=== PATIENT | male | born 1965 | race Two or more races ===

== ENCOUNTER → 2016-11-15 | Outpatient (CLI) | payer OTHER ==
[~2016-11-15] MED LIST: ASPI-621 PO; ATOR80TA75 PO; LISI5TAB7 PO; METO50TA4 PO; TICA90TA PO
== END | disposition home or self-care (01) ==
LOC: CFH 07:13
PROVIDERS: ATTEND Internal Medicine Cardiovascular Disease
DX: I50.30 Unspecified diastolic (congestive) heart failure (principal); I21.4 Non-ST elevation (NSTEMI) myocardial infarction; I08.0 Rheumatic disorders of both mitral and aortic valves
CPT/HCPCS: 93306

== ENCOUNTER → 2018-05-03 | Outpatient (CLI) | payer OTHER ==
[~2018-05-03] MED LIST changes: +ATOR-2 PO; -ATOR80TA75 PO
== END | disposition home or self-care (01) ==
LOC: CFH 14:45
PROVIDERS: ATTEND Internal Medicine Cardiovascular Disease
DX: I08.0 Rheumatic disorders of both mitral and aortic valves (principal); I25.10 Atherosclerotic heart disease of native coronary artery without angina pectoris; I10 Essential (primary) hypertension; E78.5 Hyperlipidemia, unspecified; I25.2 Old myocardial infarction; Z98.61 Coronary angioplasty status
CPT/HCPCS: 93306

== ENCOUNTER → 2019-07-31 | Outpatient (CLI) | payer OTHER ==
[~2019-07-31] MED LIST changes: -ASPI-621 PO; +ASPI81TA45 PO
[2019-07-31 13:35] LABS: ALANINE AMINOTRANSFERASE 84 U/L (12-78); ALBUMIN 3.7 g/dL (3.4-5.0); ANION GAP 10 mmol/L (5-15); CALCIUM 8.6 mg/dL (8.5-10.1); CHLORIDE 108 mmol/L (98-107); CREATININE 1.11 mg/dL (0.7-1.3)
[2019-07-31 13:43] LABS: ALKALINE PHOSPHATASE 80 U/L (45-117); CHOL/HDL RATIO 4.6; CHOLESTEROL, TOTAL 162 mg/dL (140-239); HDL CHOL % 22 % (26-37); HDL CHOLESTEROL (DIRECT) 35 mg/dL (40-60); LDL CHOLESTEROL,CALCULATED 75 mg/dL (54-169); LDL/HDL RATIO 2.1 (0.5-3.0); TOTAL PROTEIN 7.3 g/dL (6.4-8.2); TRIGLYCERIDES 259 mg/dL (50-200); VLDL CHOLESTEROL 52 mg/dL (0-25)
== END | disposition home or self-care (01) ==
LOC: CFH 11:35
PROVIDERS: ATTEND Internal Medicine Cardiovascular Disease
DX: I35.0 Nonrheumatic aortic (valve) stenosis (principal); E78.2 Mixed hyperlipidemia; I21.4 Non-ST elevation (NSTEMI) myocardial infarction
CPT/HCPCS: 36415; 80053; 80061

== ENCOUNTER 2021-01-06 09:18 | Inpatient (IN) | payer OTHER ==
[~2021-01-06] VITALS: Ht 172.7 cm; Wt 106.7 kg
--- NOTE | 2021-01-06 09:50 | NUR ---
PT BIB SELF VIA POV. PER PT "I JUST GOT BACK FROM VACATION AND I'M HAVING MILD CHEST PAINS AND FATIGUE." PT SENT HERE FROM PCP FOR CHANGES ON EKG. HX [place] WITH STENT 2016. PT STATES CP IS 1/10 DISCOMFORT WHEN NOT EXERTING HIMSELF BUT THAT THE PAIN GOES UP TO A 7/10 WITH ANY ACTIVITY. PT STATES NO OTHER HX BESIDES MN WITH STENT PLACEMENT. PT RESTING IN [facility], MONITORING IN PLACE, EKG DONE IN TRIAGE, NADN AT THIS TIME, WCTM.
[2021-01-06] MEDS ORDERED: ASPIRIN 81 MG TABLET CHEW ONE (10:22)
[2021-01-06 10:23] LABS: BASOPHILS % (AUTO) 1 % (0-1); EOSINOPHILS % (AUTO) 4 % (1-7); LYMPHOCYTES % (AUTO) 21 % (22-44); MEAN CORPUSCULAR HEMOGLOBIN 31.7 pg (27.5-34.5); MEAN CORPUSCULAR HGB CONC 34.6 g/dL (33.2-36.2); MEAN PLATELET VOLUME 8.5 fL (7.4-10.4); MONOCYTES % (AUTO) 11 % (2-9); NEUTROPHILS % (AUTO) 63 % (42-75); PLATELET COUNT 184 x10^3/uL (130-400); RED BLOOD COUNT 4.92 x10^6/uL (4.38-5.82)
[2021-01-06 10:26] LABS: ALANINE AMINOTRANSFERASE 31 U/L (12-78); ALBUMIN 3.5 g/dL (3.4-5.0); ANION GAP 7 mmol/L (5-15); CALCIUM 8.4 mg/dL (8.5-10.1); CHLORIDE 108 mmol/L (98-107)
[2021-01-06] MEDS ORDERED: ASPIRIN 81 MG TABLET CHEW PO ONE (10:30)
[2021-01-06 10:31] LABS: ALKALINE PHOSPHATASE 71 U/L (45-117); BILIRUBIN,TOTAL 0.7 mg/dL (0.2-1.0); CREATININE 0.95 mg/dL (0.7-1.3); TOTAL PROTEIN 7.1 g/dL (6.4-8.2)
[2021-01-06 10:45] LABS: TROPONIN I 0.222 ng/mL (0.000-0.045)
[2021-01-06] MEDS ORDERED: HEPARIN 25,000 UNITS/250ML PMX 250 ML IV PRN (11:00)
[2021-01-06 11:08] LABS: PARTIAL THROMBOPLASTIN TIME 28 Seconds (25-31); PROTHROMBIN TIME 10.7 Seconds (9.6-11.5)
[2021-01-06] MEDS ORDERED: HEPARIN 5,000 UNITS/ML, 1ML ONE (11:24)
[2021-01-06] MEDS ORDERED: HEPARIN 25,000 UNITS/250ML PMX 250 ML ONE (11:24)
[2021-01-06] MEDS ORDERED: ONDANSETRON ODT 4 MG PO PRN (12:00)
[2021-01-06] MEDS ORDERED: HEPARIN 5,000 UNITS/ML, 1ML IV PRN (12:00)
[2021-01-06] MEDS ORDERED: ONDANSETRON 2MG/ML, 2ML IVPush PRN (12:00)
[2021-01-06] MEDS ORDERED: HEPARIN 5,000 UNITS/ML, 1ML IV ONE (12:00)
[2021-01-06] MEDS ORDERED: ACETAMINOPHEN 325 MG TABLET PO PRN (12:00)
[2021-01-06] MEDS ORDERED: NITROGLYCERIN 0.4 MG BOTTLE (25 TABS) SL PRN (12:00)
[2021-01-06 12:51] LABS: TROPONIN I 0.215 ng/mL (0.000-0.045)
[2021-01-06 13:07] VITALS: BP 143/93
[2021-01-06] MEDS ORDERED: MIDAZOLAM 1 MG/ML, 5ML ONE (14:36)
[2021-01-06] MEDS ORDERED: TICAGRELOR 90 MG TABLET ONE (14:37)
[2021-01-06] MEDS ORDERED: VERAPAMIL 2.5 MG/ML, 2ML ONE (14:37)
[2021-01-06] MEDS ORDERED: BIVALIRUDIN 250 MG ONE (14:37)
[2021-01-06] MEDS ORDERED: LIDOCAINE-MPF 1%, 5ML ONE (14:37)
[2021-01-06] MEDS ORDERED: FENTANYL PF 100 MCG/2ML ONE (14:37)
[2021-01-06] MEDS ORDERED: HEPARIN 1,000 UNITS/ML, 10ML ONE (14:37)
[2021-01-06] MEDS: SODIUM CHLORIDE 0.9% 1,000 ML IV SCH ×3 (14:43→23:36)
[2021-01-06 18:25] LABS: TROPONIN I 0.201 ng/mL (0.000-0.045)
[2021-01-06 19:15] VITALS: BP 132/81
[2021-01-06] MEDS ORDERED: METOPROLOL SUCCINATE 50 MG TAB.ER.24H PO SCH (21:00)
[2021-01-06] MEDS ORDERED: ATORVASTATIN 80 MG TABLET PO SCH (21:00)
[2021-01-07 00:49] VITALS: BP 136/84
[2021-01-07] MEDS: SODIUM CHLORIDE 0.9% 1,000 ML IV SCH ×2 (04:40→08:00)
[2021-01-07] MEDS ORDERED: ASPIRIN 325 MG TABLET EC PO SCH (06:00)
[2021-01-07 06:08] LABS: BASOPHILS % (AUTO) 1 % (0-1); EOSINOPHILS % (AUTO) 4 % (1-7); LYMPHOCYTES % (AUTO) 16 % (22-44); MEAN CORPUSCULAR HEMOGLOBIN 31.8 pg (27.5-34.5); MEAN CORPUSCULAR HGB CONC 34.7 g/dL (33.2-36.2); MEAN PLATELET VOLUME 8.2 fL (7.4-10.4); MONOCYTES % (AUTO) 8 % (2-9); NEUTROPHILS % (AUTO) 72 % (42-75); PLATELET COUNT 182 x10^3/uL (130-400); RED BLOOD COUNT 4.94 x10^6/uL (4.38-5.82); RED CELL DISTRIBUTION WIDTH 13.7 % (9.4-14.8)
[2021-01-07 06:21] LABS: ANION GAP 4 mmol/L (5-15); CALCIUM 8.4 mg/dL (8.5-10.1); CHLORIDE 104 mmol/L (98-107)
[2021-01-07 06:28] LABS: CHOL/HDL RATIO 5.3; CHOLESTEROL, TOTAL 195 mg/dL (140-239); CREATININE 0.83 mg/dL (0.7-1.3); HDL CHOL % 19 % (26-37); HDL CHOLESTEROL (DIRECT) 37 mg/dL (40-60); LDL CHOLESTEROL,CALCULATED 119 mg/dL (54-169); LDL/HDL RATIO 3.2 (0.5-3.0); TRIGLYCERIDES 197 mg/dL (50-200); VLDL CHOLESTEROL 39 mg/dL (0-25)
[2021-01-07 07:22] VITALS: BP 140/88
[2021-01-07] MEDS ORDERED: LISINOPRIL 5 MG TABLET PO SCH (09:00)
[2021-01-07] MEDS ORDERED: ASPIRIN 81 MG TABLET EC PO SCH (09:00)
[2021-01-07 13:36] VITALS: BP 132/87
[2021-01-07] MEDS ORDERED: NITR0.4T28 SL (14:14)
[2021-01-07] MEDS ORDERED: OMNIPAQUE 350 MG/ML, 100ML BOTTLE ONE (15:09)
== END 2021-01-07 17:41 | disposition home or self-care (01) | DRG 281 ==
LOC: ED 10:55 → 5SO 11:53
PROVIDERS: ADMIT Internal Medicine; ATTEND Internal Medicine
PROC: 4A023N7 Measurement of Cardiac Sampling and Pressure, Left Heart, Percutaneous Approach (ICD-10-PCS; principal; 2021-01-06)
PROC: B2111ZZ Fluoroscopy of Multiple Coronary Arteries using Low Osmolar Contrast (ICD-10-PCS; 2021-01-06)
DX: I21.4 Non-ST elevation (NSTEMI) myocardial infarction (principal); E87.1 Hypo-osmolality and hyponatremia; E66.9 Obesity, unspecified; E78.5 Hyperlipidemia, unspecified; I10 Essential (primary) hypertension; I25.110 Atherosclerotic heart disease of native coronary artery with unstable angina pectoris; I35.0 Nonrheumatic aortic (valve) stenosis; Z00.6 Encounter for examination for normal comparison and control in clinical research program; Z82.49 Family history of ischemic heart disease and other diseases of the circulatory system; Z68.35 Body mass index [BMI] 35.0-35.9, adult; Z87.442 Personal history of urinary calculi; Z87.891 Personal history of nicotine dependence; Z95.5 Presence of coronary angioplasty implant and graft; Z72.89 Other problems related to lifestyle
CPT/HCPCS: 36415; 71045; 71275; 74175; 80048; 80053; 80061; 84484; 85025; 85520; 85610; 85730; 93005; 93306; 93356; 93454; 99156; C1769; C1894; G0378; J0583; J1644; J2250; J3010; Q9967; J7030

== ENCOUNTER 2021-01-28 04:17 | Inpatient (IN) | payer OTHER ==
[2021-01-27 14:07] LABS: MICROSCOPIC NOT IND
[2021-01-27 14:08] LABS: BASOPHILS % (AUTO) 1 % (0-1); EOSINOPHILS % (AUTO) 3 % (1-7); LYMPHOCYTES % (AUTO) 29 % (22-44); MEAN CORPUSCULAR HEMOGLOBIN 31.1 pg (27.5-34.5); MEAN CORPUSCULAR HGB CONC 33.9 g/dL (33.2-36.2); MEAN PLATELET VOLUME 8.1 fL (7.4-10.4); MONOCYTES % (AUTO) 12 % (2-9); NEUTROPHILS % (AUTO) 55 % (42-75); PLATELET COUNT 228 x10^3/uL (130-400); RED BLOOD COUNT 5.09 x10^6/uL (4.38-5.82); RED CELL DISTRIBUTION WIDTH 13.9 % (9.4-14.8)
[2021-01-27 14:18] LABS: ALANINE AMINOTRANSFERASE 34 U/L (12-78); ALBUMIN 3.8 g/dL (3.4-5.0); ANION GAP 8 mmol/L (5-15); CALCIUM 8.9 mg/dL (8.5-10.1); CHLORIDE 106 mmol/L (98-107); CREATININE 0.93 mg/dL (0.7-1.3)
[2021-01-27 14:20] LABS: ALKALINE PHOSPHATASE 80 U/L (45-117); BILIRUBIN,TOTAL 0.9 mg/dL (0.2-1.0); TOTAL PROTEIN 7.7 g/dL (6.4-8.2)
[2021-01-27 14:21] LABS: PROTHROMBIN TIME 10.7 Seconds (9.6-11.5)
[2021-01-28] VITALS (12 sets, daily range): BP systolic 102–153; BP diastolic 56–92
[~2021-01-28] VITALS: Ht 172.7 cm; Wt 113.0 kg
[~2021-01-28 04:17] MED LIST changes: +METO-93 PO; +NITR0.4T28 SL
[2021-01-28] MEDS ORDERED: DO NOT GIVE MC SCH (04:30)
[2021-01-28] MEDS ORDERED: CHLORHEXIDINE 15 ML UDC MM SCH (04:30)
[2021-01-28] MEDS ORDERED: INSULIN LISPRO 100 UNITS/ML, PEN SQ-INSULIN SCH (04:30)
[2021-01-28] MEDS ORDERED: METOPROLOL TARTRATE 25 MG TAB PO ONE (05:00)
[2021-01-28] MEDS ORDERED: FENTANYL PF 250 MCG/5ML ONE ×5 (07:10→11:24)
[2021-01-28] MEDS ORDERED: MIDAZOLAM 10MG/2 ML ONE (07:10)
[2021-01-28] MEDS ORDERED: PROPOFOL 10 MG/ML, 20ML ONE (07:11)
[2021-01-28] MEDS ORDERED: AMINOCAPROIC ACID 250 MG/ML, 20ML ONE ×3 (07:11→13:20)
[2021-01-28] MEDS ORDERED: EPINEPHRINE 1 MG/ML, 1ML ONE (07:11)
[2021-01-28] MEDS ORDERED: CALCIUM CHLORIDE 10%, 10ML SYR ONE ×2 (07:11→13:54)
[2021-01-28] MEDS ORDERED: ROCURONIUM 10MG/ML,5ML ONE ×3 (07:11→10:38)
[2021-01-28] MEDS ORDERED: ALBUMIN HUMAN 5% 500 ML IV PRN ×2 (07:30→14:30)
[2021-01-28] MEDS ORDERED: PHENYLEPHRINE 50 MG in SODIUM CHLORIDE 0.9% 245 ML IV PRN ×2 (07:30→14:30)
[2021-01-28] MEDS ORDERED: REGULAR INSULIN 100 UNITS in SODIUM CHLORIDE 0.9% 99 ML IV PRN ×2 (07:30→14:30)
[2021-01-28] MEDS ORDERED: EPINEPHRINE 5 MG in SODIUM CHLORIDE 0.9% 245 ML IV PRN ×2 (07:30→14:30)
[2021-01-28] MEDS ORDERED: DEXMEDETOMIDINE 200 MCG in SODIUM CHLORIDE 0.9% 48 ML IV PRN (07:30)
[2021-01-28] MEDS ORDERED: VANCOMYCIN 1,600 MG in SODIUM CHLORIDE 0.9% 250 ML IV PRN (07:30)
[2021-01-28] MEDS ORDERED: CEFUROXIME 1.5 GM in SODIUM CHLORIDE 0.9% 50 ML IVPB PRN (07:30)
[2021-01-28] MEDS ORDERED: POTASSIUM CHLORIDE 80 MEQ, SODIUM BICARBONATE 8.4% 10 MEQ, MAGNESIUM SULFATE 0.5 GM, LI... IV PRN (07:30)
[2021-01-28] MEDS ORDERED: MANNITOL PMX 20% 500 ML IVPB PRN (07:30)
[2021-01-28] MEDS ORDERED: HEPARIN 1,000 UNITS/ML, 10ML ONE (07:36)
[2021-01-28] MEDS ORDERED: PAPAVERINE 30 MG/ML, 2ML ONE (07:36)
[2021-01-28] MEDS: SODIUM CHLORIDE FLUSH 10ML SYR IVF SCH ×3 (09:00→21:32)
[2021-01-28] MEDS ORDERED: PAPAVERINE 30 MG/ML, 2ML IVPush ONE (09:50)
[2021-01-28] MEDS ORDERED: HEPARIN 1,000 UNITS/ML, 10ML IV ONE (09:50)
[2021-01-28] MEDS ORDERED: PROTAMINE SULFATE 10 MG/ML, 25ML ONE (11:31)
[2021-01-28] MEDS ORDERED: HEPARIN 1,000 UNITS/ML, 30ML ONE (13:54)
[2021-01-28] MEDS ORDERED: LIDOCAINE-MPF 2% ,5ML ONE (13:54)
[2021-01-28] MEDS ORDERED: SODIUM BICARB 8.4%, 50ML SYRINGE ONE (13:54)
[2021-01-28] MEDS ORDERED: SODIUM BICARBONATE 1 MEQ/ML, 50ML VIAL ONE (13:54)
[2021-01-28] MEDS ORDERED: ALBUMIN HUMAN 25% 50 ML ONE (13:55)
[2021-01-28] MEDS ORDERED: MANNITOL 0.25 GM/ML, 50ML ONE (13:55)
[2021-01-28] MEDS ORDERED: MAGNESIUM SULFATE PMX 2GM/50ML 50 ML ONE (13:55)
[2021-01-28] MEDS ORDERED: PROMETHAZINE 25 MG SUPP PR PRN (14:30)
[2021-01-28] MEDS ORDERED: PROCHLORPERAZINE 5 MG/ML, 2ML IVPush PRN (14:30)
[2021-01-28] MEDS ORDERED: DEXTROSE 50%, 50ML SYRINGE IVPush PRN (14:30)
[2021-01-28] MEDS ORDERED: OXYcodone IR 5MG TABLET PO PRN (14:30)
[2021-01-28] MEDS ORDERED: NITROGLYCERIN/D5W PMX 250 ML IV PRN (14:30)
[2021-01-28] MEDS ORDERED: DOBUTAMINE 250 MG in SODIUM CHLORIDE 0.9% 230 ML IV PRN (14:30)
[2021-01-28] MEDS ORDERED: INSULIN REGULAR 100 UNITS/ML, 3ML VIAL IVPush PRN (14:30)
[2021-01-28] MEDS ORDERED: SODIUM BICARB 8.4%, 50ML SYRINGE IV PRN (14:30)
[2021-01-28] MEDS ORDERED: GLUCAGON 1 MG IM PRN (14:30)
[2021-01-28] MEDS ORDERED: VASOPRESSIN 20 UNIT in SODIUM CHLORIDE 0.9% 99 ML IV PRN (14:30)
[2021-01-28] MEDS ORDERED: DEXTROSE 4 GM TAB.CHEW PO PRN (14:30)
[2021-01-28] MEDS ORDERED: CALCIUM CHLORIDE 13.6 MEQ in SODIUM CHLORIDE 0.9% 100 ML IVPB PRN (14:30)
[2021-01-28] MEDS ORDERED: DEXMEDETOMIDINE 400 MCG in SODIUM CHLORIDE 0.9% 96 ML IV PRN (14:30)
[2021-01-28] MEDS ORDERED: LACTATED RINGERS 500 ML IV PRN (14:30)
[2021-01-28] MEDS ORDERED: SODIUM CHLORIDE 0.9% 1,000 ML IV SCH (14:30)
[2021-01-28] MEDS ORDERED: MIDAZOLAM 1 MG/ML, 2ML IV PRN (14:30)
[2021-01-28] MEDS ORDERED: FENTANYL PF 100 MCG/2ML IV PRN (14:30)
[2021-01-28] MEDS ORDERED: HYDROmorphone 1 MG/ML, 1ML INJ IV PRN (14:30)
[2021-01-28 14:45] LABS: GLUCOSE BY BLOOD GAS ANALYZER 117 mg/dL (70-110); HEMOGLOBIN BY BLOOD GAS ANALYZ 14.3 g/dL (14.0-18.0)
[2021-01-28] MEDS: morphine SULFATE 10 MG/ML, 1ML IVPush PRN ×2 (14:55→17:14)
[2021-01-28 15:02] LABS: INTERNATIONAL NORMALIZED RATIO 1.24 (0.93-1.1); PROTHROMBIN TIME 13.1 Seconds (9.6-11.5)
[2021-01-28] MEDS: KSCALE TO 4.5 IV SCH ×2 (15:19→20:30)
[2021-01-28] MEDS: MAGNESIUM SULFATE 1 GM in SODIUM CHLORIDE 0.9% 100 ML IVPB SCH (15:19)
[2021-01-28] MEDS: INSULIN LISPRO 100 UNITS/ML, PEN SQ-INSULIN SCH ×2 (15:20→18:30)
[2021-01-28] MEDS: ACETAMINOPHEN 500 MG TABLET PO SCH ×2 (15:20→20:39)
[2021-01-28] MEDS ORDERED: MORPHINE SULFATE 4 MG/ML, 1ML ONE (17:10)
[2021-01-28] MEDS: OXYcodone IR 5MG TABLET PO PRN ×2 (18:03→21:40)
[2021-01-28] MEDS ORDERED: KETOROLAC 30 MG/1 ML IVPush ONE (18:30)
[2021-01-28] MEDS: LISINOPRIL 5 MG TABLET PO SCH (18:34)
[2021-01-28] MEDS: CEFUROXIME 1.5 GM in SODIUM CHLORIDE 0.9% 50 ML IVPB SCH (20:39)
[2021-01-28] MEDS ORDERED: DIPHENHYDRAMINE 25 MG CAPSULE PO PRN (21:00)
[2021-01-28] MEDS: VANCOMYCIN 1,600 MG in SODIUM CHLORIDE 0.9% 250 ML IVPB SCH (21:32)
[2021-01-28] MEDS: DOCUSATE 100 MG CAPSULE PO SCH (21:40)
[2021-01-28] MEDS: SENNA/DOCUSATE TABLET PO SCH (21:40)
[2021-01-28] MEDS: ATORVASTATIN 40 MG TABLET PO SCH (21:40)
[2021-01-28] MEDS: ONDANSETRON 2MG/ML, 2ML IVPush PRN (22:31)
[2021-01-29] MEDS: INSULIN LISPRO 100 UNITS/ML, PEN SQ-INSULIN SCH ×6 (01:00→20:41)
[2021-01-29] MEDS: ACETAMINOPHEN 500 MG TABLET PO SCH ×4 (03:11→20:23)
[2021-01-29 03:18] LABS: BASOPHILS % (AUTO) 1 % (0-1); EOSINOPHILS % (AUTO) 0 % (1-7); LYMPHOCYTES % (AUTO) 9 % (22-44); MEAN CORPUSCULAR HEMOGLOBIN 32.1 pg (27.5-34.5); MEAN CORPUSCULAR HGB CONC 34.8 g/dL (33.2-36.2); MEAN PLATELET VOLUME 8.3 fL (7.4-10.4); MONOCYTES % (AUTO) 13 % (2-9); NEUTROPHILS % (AUTO) 78 % (42-75); PLATELET COUNT 131 x10^3/uL (130-400); RED BLOOD COUNT 3.59 x10^6/uL (4.38-5.82); RED CELL DISTRIBUTION WIDTH 13.9 % (9.4-14.8)
[2021-01-29 03:30] LABS: CALCIUM 7.8 mg/dL (8.5-10.1); CHLORIDE 111 mmol/L (98-107)
[2021-01-29 03:32] LABS: CREATININE 0.86 mg/dL (0.7-1.3)
[2021-01-29 03:38] LABS: ANION GAP 5 mmol/L (5-15)
[2021-01-29] MEDS: KSCALE TO 4.5 IV SCH ×2 (03:51→07:50)
[2021-01-29] MEDS: OXYcodone IR 5MG TABLET PO PRN ×3 (05:50→17:46)
[2021-01-29] MEDS ORDERED: MUPIROCIN OINT 2%, 15GM NAS SCH (06:00)
[2021-01-29] MEDS: SENNA/DOCUSATE TABLET PO SCH ×2 (08:11→20:24)
[2021-01-29] MEDS: DOCUSATE 100 MG CAPSULE PO SCH ×2 (08:11→20:23)
[2021-01-29] MEDS: ASPIRIN 81 MG TABLET EC PO SCH (08:11)
[2021-01-29] MEDS: LISINOPRIL 5 MG TABLET PO SCH (08:11)
[2021-01-29] MEDS: CLOPIDOGREL 75 MG TABLET PO SCH (08:11)
[2021-01-29] MEDS: CHLORHEXIDINE 15 ML UDC MM SCH ×2 (08:11→20:41)
[2021-01-29] MEDS: ONDANSETRON 2MG/ML, 2ML IVPush PRN (08:11)
[2021-01-29] MEDS: POLYETHYLENE GLYCOL 17 GM PACKET PO SCH (08:11)
[2021-01-29] MEDS: OMEPRAZOLE 20 MG CAPSULE.DR PO SCH (08:11)
[2021-01-29] MEDS: CEFUROXIME 1.5 GM in SODIUM CHLORIDE 0.9% 50 ML IVPB SCH (08:12)
[2021-01-29] MEDS: SODIUM CHLORIDE FLUSH 10ML SYR IVF SCH ×4 (09:49→20:23)
[2021-01-29] MEDS: VANCOMYCIN 1,600 MG in SODIUM CHLORIDE 0.9% 250 ML IVPB SCH (09:50)
[2021-01-29] MEDS: METOPROLOL TARTRATE 25 MG TAB PO/NG SCH ×2 (09:50→20:23)
[2021-01-29] MEDS: KETOROLAC 30 MG/1 ML IVPush SCH ×3 (09:50→20:22)
[2021-01-29] MEDS: MUPIROCIN OINT 2%, 15GM NAS SCH ×2 (11:31→20:41)
[2021-01-29] MEDS: MAGNESIUM SULFATE 1 GM in SODIUM CHLORIDE 0.9% 100 ML IVPB SCH (14:49)
[2021-01-29 17:00] VITALS: BP 160/80
[2021-01-29 18:47] VITALS: BP 131/72
[2021-01-29] MEDS: ATORVASTATIN 40 MG TABLET PO SCH (20:22)
[2021-01-30 00:13] VITALS: BP 156/74
[2021-01-30] MEDS: OXYcodone IR 5MG TABLET PO PRN ×2 (01:34→20:44)
[2021-01-30] MEDS: ACETAMINOPHEN 500 MG TABLET PO SCH ×4 (03:06→20:36)
[2021-01-30] MEDS: KETOROLAC 30 MG/1 ML IVPush SCH ×4 (03:06→20:36)
[2021-01-30 05:23] LABS: BASOPHILS % (AUTO) 1 % (0-1); EOSINOPHILS % (AUTO) 1 % (1-7); LYMPHOCYTES % (AUTO) 7 % (22-44); MEAN CORPUSCULAR HEMOGLOBIN 31.9 pg (27.5-34.5); MEAN CORPUSCULAR HGB CONC 34.2 g/dL (33.2-36.2); MEAN PLATELET VOLUME 8.5 fL (7.4-10.4); MONOCYTES % (AUTO) 10 % (2-9); NEUTROPHILS % (AUTO) 82 % (42-75); PLATELET COUNT 116 x10^3/uL (130-400); RED BLOOD COUNT 3.63 x10^6/uL (4.38-5.82); RED CELL DISTRIBUTION WIDTH 13.7 % (9.4-14.8)
[2021-01-30 05:25] LABS: ANION GAP 4 mmol/L (5-15); CALCIUM 7.5 mg/dL (8.5-10.1); CHLORIDE 107 mmol/L (98-107); CREATININE 0.69 mg/dL (0.7-1.3)
[2021-01-30 06:56] VITALS: BP 154/74
[2021-01-30] MEDS: INSULIN LISPRO 100 UNITS/ML, PEN SQ-INSULIN SCH ×2 (07:00→11:00)
[2021-01-30] MEDS: METOPROLOL SUCCINATE 25 MG TAB.ER.24H PO SCH (07:58)
[2021-01-30] MEDS: OMEPRAZOLE 20 MG CAPSULE.DR PO SCH (07:58)
[2021-01-30] MEDS: SODIUM CHLORIDE FLUSH 10ML SYR IVF SCH ×4 (09:00→20:44)
[2021-01-30] MEDS: POLYETHYLENE GLYCOL 17 GM PACKET PO SCH (09:00)
[2021-01-30] MEDS: CHLORHEXIDINE 15 ML UDC MM SCH ×2 (09:11→20:36)
[2021-01-30] MEDS: MUPIROCIN OINT 2%, 15GM NAS SCH ×2 (09:11→20:36)
[2021-01-30] MEDS: POTASSIUM CHLORIDE 20 MEQ TAB.ER.PRT PO SCH (09:12)
[2021-01-30] MEDS: CLOPIDOGREL 75 MG TABLET PO SCH (09:12)
[2021-01-30] MEDS: SENNA/DOCUSATE TABLET PO SCH ×2 (09:12→20:37)
[2021-01-30] MEDS: DOCUSATE 100 MG CAPSULE PO SCH ×2 (09:12→20:37)
[2021-01-30] MEDS: LISINOPRIL 5 MG TABLET PO SCH (09:12)
[2021-01-30] MEDS: ASPIRIN 81 MG TABLET EC PO SCH (09:12)
[2021-01-30] MEDS: FUROSEMIDE 40 MG/4 ML IV SCH (09:13)
[2021-01-30 12:22] VITALS: BP 153/84
[2021-01-30 14:19] VITALS: BP 146/81
[2021-01-30] MEDS ORDERED: BISACODYL 10 MG SUPP PR PRN (14:30)
[2021-01-30] MEDS: MAGNESIUM SULFATE 1 GM in SODIUM CHLORIDE 0.9% 100 ML IVPB SCH (16:15)
[2021-01-30 20:00] VITALS: BP 181/97
[2021-01-30] MEDS: ATORVASTATIN 40 MG TABLET PO SCH (20:36)
[2021-01-31 02:32] VITALS: BP 132/81
[2021-01-31] MEDS: KETOROLAC 30 MG/1 ML IVPush SCH ×4 (02:33→21:10)
[2021-01-31 05:24] LABS: BASOPHILS % (AUTO) 1 % (0-1); EOSINOPHILS % (AUTO) 2 % (1-7); LYMPHOCYTES % (AUTO) 9 % (22-44); MEAN CORPUSCULAR HEMOGLOBIN 31.4 pg (27.5-34.5); MEAN CORPUSCULAR HGB CONC 34.2 g/dL (33.2-36.2); MEAN PLATELET VOLUME 8.4 fL (7.4-10.4); MONOCYTES % (AUTO) 11 % (2-9); NEUTROPHILS % (AUTO) 77 % (42-75); PLATELET COUNT 127 x10^3/uL (130-400); RED BLOOD COUNT 3.56 x10^6/uL (4.38-5.82); RED CELL DISTRIBUTION WIDTH 13.3 % (9.4-14.8)
[2021-01-31 05:38] LABS: CREATININE 0.73 mg/dL (0.7-1.3)
[2021-01-31 05:49] LABS: ANION GAP 5 mmol/L (5-15); CHLORIDE 106 mmol/L (98-107)
[2021-01-31] MEDS: METOPROLOL SUCCINATE 25 MG TAB.ER.24H PO SCH (06:07)
[2021-01-31] MEDS: ACETAMINOPHEN 500 MG TABLET PO SCH ×4 (06:07→23:31)
[2021-01-31 06:13] VITALS: BP 144/82
[2021-01-31] MEDS: FUROSEMIDE 40 MG/4 ML IV SCH (08:51)
[2021-01-31] MEDS: POTASSIUM CHLORIDE 20 MEQ TAB.ER.PRT PO SCH (08:51)
[2021-01-31] MEDS: OMEPRAZOLE 20 MG CAPSULE.DR PO SCH (08:51)
[2021-01-31] MEDS: SODIUM CHLORIDE FLUSH 10ML SYR IVF SCH ×4 (08:52→21:12)
[2021-01-31] MEDS: ASPIRIN 81 MG TABLET EC PO SCH (08:53)
[2021-01-31] MEDS: CLOPIDOGREL 75 MG TABLET PO SCH (08:53)
[2021-01-31] MEDS: LISINOPRIL 10 MG TABLET PO SCH (08:53)
[2021-01-31] MEDS: MUPIROCIN OINT 2%, 15GM NAS SCH ×2 (08:53→21:11)
[2021-01-31] MEDS: DOCUSATE 100 MG CAPSULE PO SCH ×2 (08:53→21:10)
[2021-01-31] MEDS: POLYETHYLENE GLYCOL 17 GM PACKET PO SCH (09:00)
[2021-01-31] MEDS: SENNA/DOCUSATE TABLET PO SCH ×2 (09:06→21:00)
[2021-01-31 11:06] VITALS: BP 137/94
[2021-01-31] MEDS: ATORVASTATIN 40 MG TABLET PO SCH (21:10)
[2021-01-31 21:14] VITALS: BP 158/95
[2021-02-01] VITALS: BP 150/82
[2021-02-01] MEDS: KETOROLAC 30 MG/1 ML IVPush SCH ×2 (03:02→08:17)
[2021-02-01 05:04] LABS: BASOPHILS % (AUTO) 1 % (0-1); EOSINOPHILS % (AUTO) 3 % (1-7); LYMPHOCYTES % (AUTO) 9 % (22-44); MEAN CORPUSCULAR HGB CONC 34.9 g/dL (33.2-36.2); MEAN PLATELET VOLUME 8.6 fL (7.4-10.4); MONOCYTES % (AUTO) 12 % (2-9); NEUTROPHILS % (AUTO) 75 % (42-75); PLATELET COUNT 169 x10^3/uL (130-400); RED BLOOD COUNT 3.66 x10^6/uL (4.38-5.82); RED CELL DISTRIBUTION WIDTH 13.4 % (9.4-14.8)
[2021-02-01 05:16] LABS: ANION GAP 7 mmol/L (5-15); CHLORIDE 103 mmol/L (98-107); CREATININE 0.72 mg/dL (0.7-1.3)
[2021-02-01] MEDS: ACETAMINOPHEN 500 MG TABLET PO SCH (05:34)
[2021-02-01] MEDS ORDERED: METOPROLOL SUCCINATE 50 MG TAB.ER.24H PO SCH (06:00)
[2021-02-01 08:15] VITALS: BP 170/97
[2021-02-01] MEDS: CLOPIDOGREL 75 MG TABLET PO SCH (08:16)
[2021-02-01] MEDS: POTASSIUM CHLORIDE 20 MEQ TAB.ER.PRT PO SCH (08:16)
[2021-02-01] MEDS: OMEPRAZOLE 20 MG CAPSULE.DR PO SCH (08:16)
[2021-02-01] MEDS: SODIUM CHLORIDE FLUSH 10ML SYR IVF SCH ×2 (08:17→08:21)
[2021-02-01] MEDS: DOCUSATE 100 MG CAPSULE PO SCH (08:17)
[2021-02-01] MEDS: FUROSEMIDE 40 MG/4 ML IV SCH (08:17)
[2021-02-01] MEDS: POLYETHYLENE GLYCOL 17 GM PACKET PO SCH (08:17)
[2021-02-01] MEDS: SENNA/DOCUSATE TABLET PO SCH (08:18)
[2021-02-01] MEDS: LISINOPRIL 10 MG TABLET PO SCH (08:18)
[2021-02-01] MEDS: ASPIRIN 81 MG TABLET EC PO SCH (08:21)
[2021-02-01] MEDS: MUPIROCIN OINT 2%, 15GM NAS SCH (08:21)
[2021-02-01] MEDS ORDERED: LISI-167 PO (11:51)
[2021-02-01] MEDS ORDERED: POTA20TA6 PO (11:51)
[2021-02-01] MEDS ORDERED: ATOR40TA78 PO (11:51)
[2021-02-01] MEDS ORDERED: FURO40TA6 PO (11:51)
[2021-02-01] MEDS ORDERED: OXYC5TAB98 PO (11:51)
[2021-02-01] MEDS ORDERED: CLOP75TA PO (11:51)
[2021-02-01] MEDS ORDERED: ASPI81TA45 PO (11:51)
== END 2021-02-01 13:10 | disposition home health service (06) | DRG 221 ==
LOC: 5SO 04:17 → CSU 10:31 → 5SO 01-29 16:43
PROVIDERS: ADMIT Thoracic Surgery (Cardiothoracic Vascular Surgery); ATTEND Thoracic Surgery (Cardiothoracic Vascular Surgery)
PROC: 02RF08Z Replacement of Aortic Valve with Zooplastic Tissue, Open Approach (ICD-10-PCS; 2021-01-28)
PROC: 02100Z9 Bypass Coronary Artery, One Artery from Left Internal Mammary, Open Approach (ICD-10-PCS; 2021-01-28)
PROC: 06BP0ZZ Excision of Right Saphenous Vein, Open Approach (ICD-10-PCS; 2021-01-28)
PROC: 5A1221Z Performance of Cardiac Output, Continuous (ICD-10-PCS; 2021-01-28)
PROC: B24BZZ4 Ultrasonography of Heart with Aorta, Transesophageal (ICD-10-PCS; 2021-01-28)
PROC: 30233K1 Transfusion of Nonautologous Frozen Plasma into Peripheral Vein, Percutaneous Approach (ICD-10-PCS; 2021-01-28)
PROC: 30233R1 Transfusion of Nonautologous Platelets into Peripheral Vein, Percutaneous Approach (ICD-10-PCS; 2021-01-28)
PROC: 30233M1 Transfusion of Nonautologous Plasma Cryoprecipitate into Peripheral Vein, Percutaneous Approach (ICD-10-PCS; 2021-01-28)
PROC: 021009W Bypass Coronary Artery, One Artery from Aorta with Autologous Venous Tissue, Open Approach (ICD-10-PCS; principal; 2021-01-28 08:30)
DX: I35.0 Nonrheumatic aortic (valve) stenosis (principal); I25.10 Atherosclerotic heart disease of native coronary artery without angina pectoris; I77.819 Aortic ectasia, unspecified site; I10 Essential (primary) hypertension; E66.9 Obesity, unspecified; Z68.37 Body mass index [BMI] 37.0-37.9, adult; Z20.822 Contact with and (suspected) exposure to COVID-19
CPT/HCPCS: 36415; 36600; J3490; S0017; 71045; 71046; 80048; 80053; 81003; 82330; 82800; 82803; 82810; 82947; 82962; 83036; 83735; 84132; 84295; 85014; 85018; 85025; 85049; 85347; 85610; 85730; 86850; 86900; 86923; 87081; 87635; 88305; 93005; 93312; 93321; 93325; 93880; 93970; 94002; C1768; G0378; J0171; J0697; J1644; J1815; J1885; J1940; J2250; J2405; J2704; J2720; J3010; J3370; J3475; J3480; P9045; P9047; C1751; C1760; J2150; J2270; J2370; J2440; J7050; P9012; P9017; P9035